=== PATIENT | male | born 2000 | race Caucasian/White ===

== ENCOUNTER 2018-03-04 09:08 | Emergency (ER) | payer OTHER ==
[2018-03-04] MEDS: DEXAMETHASONE 4 MG TAB PO (10:43)
[2018-03-04] MEDS: ACYCLOVIR 800 MG TAB PO (10:43)
== END 2018-03-04 10:58 | disposition home or self-care (01) ==
LOC: FTE 09:08
DX: H01.114 Allergic dermatitis of left upper eyelid (principal); H01.115 Allergic dermatitis of left lower eyelid
CPT/HCPCS: 99283; Z7502

== ENCOUNTER 2018-05-25 13:12 | Emergency (ER) | payer OTHER ==
[2018-05-25] MEDS: DEXAMETHASONE 4 MG TAB PO (14:25)
== END 2018-05-25 14:58 | disposition home or self-care (01) ==
LOC: FTE 13:12
DX: L30.9 Dermatitis, unspecified (principal)
CPT/HCPCS: 99283; Z7502